=== PATIENT | male | born 1955 | race Caucasian/White ===

== ENCOUNTER 2020-06-05 21:09 | Emergency (ER) | payer OTHER ==
[~2020-06-05] VITALS: Ht 182 cm; Wt 108.0 kg
[2020-06-05 21:17] VITALS: BP 148/66
--- NOTE | 2020-06-05 21:25 | ED Lower Extremity ---
General Chief Complaint: Lower Extremity Stated Complaint: LEG WOUND Source: patient Exam Limitations: no limitations History of Present Illness Date Seen by Provider: Jun 05, 2020 Time Seen by Provider: 21:22 Initial Comments To ER by EMS from [facility] where he was arrested. He arrives in [place] [employer] Custody. He has a right leg wound which has been ongoing since February he states but began to bother him tonight after becoming arre sted. Onset: just prior to arrival Severity: moderate Pain/Injury Location: right leg Method of Injury: unknown Allergies and Home Medications Allergies Coded Allergies: No Known Drug Allergies (Unverified , 06/05/20) Home Medications Doxycycline Hyclate 100 Mg Tablet, 100 MG PO BID Prescribed by: ES MENDEZ on 06/05/20 5159 Patient Home Medication List Home Medication List Reviewed: Yes Review of Systems Constitutional: see HPI EENTM: see HPI Respiratory: no symptoms reported Cardiovascular: no symptoms reported Genitourinary: no symptoms reported Musculoskeletal: see HPI Skin: see HPI Psychiatric/Neurological: No Symptoms Reported Physical Exam Vital Signs Vital Signs - First Documented 06/05/20 21:17 Temp 36.5 Pulse 92 Resp 22 B/P (MAP) 148/66 (93) Pulse Ox 98 Capillary Refill : Height, Weight, BMI Height: '" Weight: lbs. oz. kg; BMI Method: General Appearance: WD/WN, no apparent distress, other (appears slightly intoxicated, talks quite a bit, I can smell a little alcohol on his breath but speech is not slurred; is handcuffed ) HEENT: PERRL/EOMI, normal ENT inspection Respiratory: no respiratory distress, no accessory muscle use Hips: bilateral hip non-tender, bilateral hip normal inspection, bilateral hip normal range of motion Legs: right leg pain, right leg soft tissue tenderness, right leg other (there is some chronic appearing erythema, scaling of the skin, thickening of the skin to the right leg distally. Small amount of oozing of serous fluid from part of the wound.) Knees: bilateral knee non-tender, bilateral knee normal inspection, bilateral knee normal range of motion Ankles: bilateral ankle non-tender; left ankle normal inspection; right ankle other Neurologic/Psychiatric: alert, oriented x 3 Skin: normal color, warm/dry No lymphangitis, no fever or tachycardia or hypotension. Brisk capillary refill of the toes. Strong blood flow is auscultated with Doppler over the dorsalis pedis artery Progress/Results/Core Measures Results/Orders Lab Results Laboratory Tests Test 06/05/20 21:20 Range/Units White Blood Count 8.9 4.3-11.0 10^3/uL Red Blood Count 5.26 4.30-5.52 10^6/uL Hemoglobin 14.3 13.3-17.7 g/dL Hematocrit 46 40-54 % Mean Corpuscular Volume 88 80-99 fL Mean Corpuscular Hemoglobin 27 25-34 pg Mean Corpuscular Hemoglobin Concent 31 L 32-36 g/dL Red Cell Distribution Width 14.0 10.0-14.5 % Platelet Count 301 130-400 10^3/uL Mean Platelet Volume 9.7 9.0-12.2 fL Immature Granulocyte % (Auto) 1 % Neutrophils (%) (Auto) 46 42-75 % Lymphocytes (%) (Auto) 43 12-44 % Monocytes (%) (Auto) 5 0-12 % Eosinophils (%) (Auto) 4 0-10 % Basophils (%) (Auto) 1 0-10 % Neutrophils # (Auto) 4.1 1.8-7.8 10^3/uL Lymphocytes # (Auto) 3.8 1.0-4.0 10^3/uL Monocytes # (Auto) 0.5 0.0-1.0 10^3/uL Eosinophils # (Auto) 0.4 H 0.0-0.3 10^3/uL Basophils # (Auto) 0.1 0.0-0.1 10^3/uL Immature Granulocyte # (Auto) 0.0 0.0-0.1 10^3/uL Sodium Level 138 135-145 MMOL/L Potassium Level 4.0 3.6-5.0 MMOL/L Chloride Level 107 98-107 MMOL/L Carbon Dioxide Level 17 L 21-32 MMOL/L Anion Gap 14 5-14 MMOL/L Blood Urea Nitrogen 8 7-18 MG/DL Creatinine 0.77 0.60-1.30 MG/DL Estimat Glomerular Filtration Rate > 60 BUN/Creatinine Ratio 10 Glucose Level 173 H 70-105 MG/DL Calcium Level 8.2 L 8.5-10.1 MG/DL Serum Alcohol 263 H <10 MG/DL My Orders Orders - MENDEZ,PETER J 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 Still alert and oriented. Cooperative and pleasant. 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 Impression Primary Impression: Chronic wound of extremity Disposition: 21 DIS/X[address]/LAW ENFORCE Condition: Stable Departure-Patient Inst. Decision time for Depature: 21:42 Referrals: NO,LOCAL PHYSICIAN (PCP/Family) Primary Care Physician Patient Instructions: Wound Infection Add. Discharge Instructions: 1. Antibiotics as directed 2. Return to ER for any worsening. Follow-up with healthcare provider within 5 days for recheck. All discharge instructions reviewed with patient and/or family. Voiced understanding. Scripts Doxycycline Hyclate (Doxycycline Hyclate) 100 Mg Tablet 100 MG PO BID, #20 TAB 0 Refills Prov: ES MENDEZ APRN 06/05/20 ES MENDEZ APRN Jun 05, 2020 21:25
[2020-06-05 21:36] LABS: BASOPHILS # (AUTO) 0.1 10^3/uL (0.0-0.1); BASOPHILS % (AUTO) 1 % (0-10); EOSINOPHILS # (AUTO) 0.4 10^3/uL (0.0-0.3); EOSINOPHILS % (AUTO) 4 % (0-10); HEMATOCRIT 46 % (40-54); HEMOGLOBIN 14.3 g/dL (13.3-17.7); LYMPHOCYTES # (AUTO) 3.8 10^3/uL (1.0-4.0); LYMPHOCYTES % (AUTO) 43 % (12-44); MEAN CORPUSCULAR HEMOGLOBIN 27 pg (25-34); MEAN CORPUSCULAR HGB CONC 31 g/dL (32-36); MEAN CORPUSCULAR VOLUME 88 fL (80-99); MEAN PLATELET VOLUME 9.7 fL (9.0-12.2); MONOCYTES # (AUTO) 0.5 10^3/uL (0.0-1.0); MONOCYTES % (AUTO) 5 % (0-12); NEUTROPHILS # (AUTO) 4.1 10^3/uL (1.8-7.8); NEUTROPHILS % (AUTO) 46 % (42-75); PLATELET COUNT 301 10^3/uL (130-400); WHITE BLOOD COUNT 8.9 10^3/uL (4.3-11.0)
[2020-06-05] MEDS ORDERED: DOXY100T2 PO (21:44)
[2020-06-05 21:47] LABS: CHLORIDE 107 MMOL/L (98-107); SODIUM 138 MMOL/L (135-145)
[2020-06-05 21:48] LABS: CALCIUM 8.2 MG/DL (8.5-10.1); GLUCOSE 173 MG/DL (70-105)
[2020-06-05 21:50] LABS: CARBON DIOXIDE 17 MMOL/L (21-32)
[2020-06-05 21:52] LABS: CREATININE SERUM 0.77 MG/DL (0.60-1.30); GFR ESTIMATED > 60
[2020-06-05 21:53] LABS: BUN/CREATININE RATIO 10
--- NOTE | 2020-06-05 21:54 | NUR ---
RETURNED FROM ROOM ANSWERING CALL LIGHT AND WITNESSED THE PATIENT BEING VERBALLY AGRESSIVE WITH THE REAL PROPERTY APPRAISER IN THE ROOM.
[2020-06-05] MEDS ORDERED: DOXYCYCLINE 100 MG (VIBRAMYCIN) TABLET PO SCH (22:00)
[2020-06-05] MEDS ORDERED: cefTRIAXone FOR IV USE 1,000 MG in WATER (STERILE) FOR INJECTION 10 ML IV ONE (22:00)
--- NOTE | 2020-06-05 22:09 | NUR ---
OFFICER AND PATIENT WAITING FOR ADDITIONAL OFFICER TO ARRIVE FOR WARRENTED TESTING. PATIENT IS DISCHARGED AT THIS TIME, HOWEVER WILL WAIT IN ROOM UNTIL LEGAL BLOOD DRAW.
== END 2020-06-05 22:40 ==
LOC: ER 21:15 → EDBD 21:15 → ER 22:40
DX: S81.801A Unspecified open wound, right lower leg, initial encounter (principal); X58.XXXA Exposure to other specified factors, initial encounter
CPT/HCPCS: 80048; 85025; 87070; 87205; G0480; 36415; 80320; 87077